=== PATIENT | male | born 1965 | race Caucasian/White ===

== ENCOUNTER 2018-10-30 22:28 | Emergency (ER) | payer MEDICARE, OTHER ==
[~2018-10-30] VITALS: Ht 157.5 cm; Wt 49.9 kg
[2018-10-30 22:44] VITALS: BP 145/92
[2018-10-30] MEDS ORDERED: ACETAMINOP160 MG/5 M ORAL (22:46)
[2018-10-30] MEDS ORDERED: HYDRALAZINE HCL25 M2 GT (22:46)
[2018-10-30] MEDS ORDERED: ISOSOURCE HN1500 ML PO (22:46)
[2018-10-30] MEDS ORDERED: OLANZAPINE5 MG ORAL (22:46)
[2018-10-30] MEDS ORDERED: NORVASC5 MG GT (22:46)
[2018-10-30] MEDS ORDERED: DEPAKOTE500 MG GT (22:46)
[2018-10-30] MEDS ORDERED: CLONAZEPAM0.5 MG GT (22:46)
[2018-10-30] MEDS ORDERED: FLUPHENAZIN5 MG/1 ML GT (22:46)
[2018-10-30] MEDS ORDERED: BENZTROPINE ME0.5 MG GT (22:46)
[2018-10-30] MEDS ORDERED: DULCOLAX10 MG RC (22:46)
[2018-10-30] MEDS ORDERED: IRON325 M1 PO (22:46)
[2018-10-30] MEDS ORDERED: TRAMADOL HCL50 MG GT (22:46)
[2018-10-30] MEDS ORDERED: ACIDOPHILUS1 EAC6 GT (22:46)
[2018-10-30] MEDS ORDERED: MELATONIN3 MG ORAL (22:46)
--- NOTE | 2018-10-30 22:58 | Emergency Room Report ---
History of Present Illness General Chief Complaint: Malfunctioning Gastric Tube Source: Patient, Medical Record, EMS Present Illness HPI Is a 53-year-old male with multiple medical problem. He presents with chief complaint of dislodgment of his G-tube. He was in bed and turned around and fell out. A small Bhat was placed. He has no complaint. No trauma. No bleeding. No other complaint. Allergies: Coded Allergies: No Known Allergies (Unverified , 10/30/18) Patient History Past Medical History: see triage record, old chart reviewed Past Surgical History: other Pertinent Family History: none Social History: Denies: smoking Immunizations: other Reviewed Nursing Documentation: PMH: Agreed; PSxH: Agreed Nursing Documentation-PMH Past Medical History: No History, Except For Hx Cardiac Problems: No - pneumothorax, hypoxia, resp failure Hx Hypertension: Yes Hx COPD: Yes Hx Neurological Problems: Yes - schizophrenia, bipolar, head injury Review of Systems Eye: Denies: eye pain, blurred vision ENT: Denies: ear pain, nose congestion, throat swelling Respiratory: Denies: cough, shortness of breath Cardiovascular: Denies: chest pain, palpitations Gastrointestinal: Denies: abdominal pain, diarrhea, nausea, vomiting Musculoskeletal: Denies: back pain, joint pain Skin: Denies: rash Neurological: Denies: headache, numbness Endocrine: Denies: increased thirst, increased urine Hematologic/Lymphatic: Denies: easy bruising All Other Systems: negative except mentioned in HPI Physical Exam Vital Signs Date Time Temp Pulse Resp B/P (MAP) Pulse Ox O2 Delivery O2 Flow Rate FiO2 10/30/18 22:28 98.1 88 16 145/92 94 Room Air vitals unremarkable Sp02 EP Interpretation: reviewed, normal General Appearance: well appearing, no apparent distress, alert Head: normocephalic, atraumatic Eyes: bilateral eye PERRL, bilateral eye EOMI ENT: hearing grossly normal, normal pharynx Neck: full range of motion, supple, no meningismus Respiratory: chest non-tender, lungs clear, normal breath sounds Cardiovascular #1: regular rate, rhythm, no murmur Gastrointestinal: normal bowel sounds, non tender, no mass, no organomegaly, no bruit, non-distended, other - G-tube site is clean. No drainage. Musculoskeletal: back normal, gait/station normal, normal range of motion Psychiatric: mood/affect normal Skin: warm/dry Procedures Additional Procedure Procedure Narrative Procedure: G-tube placement Indication: G-tube dislodgment Description: Area cleaned with Betadine. I place a 20 Turkish G-tube without any difficulty. Balloon inflated. Patient tolerated procedure without a problem. X-rays done. Medical Decision Making Diagnostic Impression: Primary Impression: Malfunction of gastrostomy tube ER Course Patient here for G-tube replacement. No extravasation. No trauma. Other X-Ray Diagnostic Results Other X-Ray Diagnostic Results : X-Ray ordered: KUB with Gastrografin # of Views/Limited Vs Complete: 1 View Indication: Pain EP Interpretation: Yes Interpretation: no dislocation, no soft tissue swelling, no fractures, nonspecific bowel gas, other - No extravasation Impression: Other - successful placement of Gtube Electronically Signed by: Edgar Wilde MD Last Vital Signs Date Time Temp Pulse Resp B/P (MAP) Pulse Ox O2 Delivery O2 Flow Rate FiO2 10/30/18 22:44 98.1 71 16 145/92 94 Room Air Status: improved Disposition: XFER SNF Condition: Stable Patient Instructions: Gastrostomy Tube Home Guide, Adult Additional Instructions: Follow-up with your doctor in 7 days as needed. Return if worse. Edgar Wilde MD Oct 30, 2018 22:58
[2018-10-30] MEDS ORDERED: Gastrograffin 30ml ORAL ONE (23:00)
[2018-10-30 23:27] VITALS: BP_SYST 112; BP_SYST 145; BP_DIAS 87; BP_DIAS 92
--- NOTE | 2018-10-31 11:19 | Diagnostic Imaging Report ---
Indication: Status post gastrostomy replacement Technique: Supine view of the abdomen after injection of water-soluble contrast into gastrostomy Comparison: none Findings: Contrast opacifies the stomach. No contrast extravasation is demonstrated. There is a single dilated small bowel loop noted. The distal colon is mildly distended as well. Impression: Satisfactory position of gastrostomy tube Other findings as noted
== END 2018-10-30 23:33 ==
LOC: EDBD 22:28 → EMR 22:50
DX: Z43.1 Encounter for attention to gastrostomy (principal); F20.9 Schizophrenia, unspecified; F31.9 Bipolar disorder, unspecified; I10 Essential (primary) hypertension; J44.9 Chronic obstructive pulmonary disease, unspecified
CPT/HCPCS: 43760; 74018; 99284; Q9963

== ENCOUNTER 2018-11-01 00:02 | Emergency (ER) | payer MEDICARE, OTHER ==
[~2018-11-01] VITALS: Ht 172.7 cm; Wt 68.0 kg
[~2018-11-01 00:02] MED LIST: ACETAMINOP160 MG/5 M ORAL; ACIDOPHILUS1 EAC6 GT; BENZTROPINE ME0.5 MG GT; CLONAZEPAM0.5 MG GT; DEPAKOTE500 MG GT; DULCOLAX10 MG RC; FLUPHENAZIN5 MG/1 ML GT; HYDRALAZINE HCL25 M2 GT; IRON325 M1 PO; ISOSOURCE HN1500 ML PO; MELATONIN3 MG ORAL; NORVASC5 MG GT; OLANZAPINE5 MG ORAL; TRAMADOL HCL50 MG GT
[2018-11-01 00:05] VITALS: BP 133/93
--- NOTE | 2018-11-01 00:27 | Emergency Room Report ---
History of Present Illness General Chief Complaint: Malfunctioning Gastric Tube Source: Patient, EMS Present Illness HPI Patient presents with feeding tube that had fallen out It was reported the patient was here yesterday with similar complaint Upon evaluation the feeding tube was replaced by the nursing facility apparently Patient himself denies any vomiting denies any nausea He is not sure how the feeding tube was dislodged denies any pain at the site denies any fevers Allergies: Coded Allergies: No Known Allergies (Unverified , 10/30/18) Patient History Past Medical History: see triage record Pertinent Family History: none Reviewed Nursing Documentation: PMH: Agreed; PSxH: Agreed Nursing Documentation-PMH Hx Cardiac Problems: No - pneumothorax, hypoxia, resp failure Hx Hypertension: Yes Hx COPD: Yes Hx Neurological Problems: Yes - schizophrenia, bipolar, head injury Review of Systems All Other Systems: negative except mentioned in HPI Physical Exam Vital Signs Date Time Temp Pulse Resp B/P (MAP) Pulse Ox O2 Delivery O2 Flow Rate FiO2 11/01/18 00:03 98.2 115 16 133/93 92 Room Air Sp02 EP Interpretation: reviewed, normal General Appearance: well appearing, no apparent distress Head: normocephalic, atraumatic Eyes: bilateral eye PERRL, bilateral eye EOMI ENT: hearing grossly normal, normal pharynx Neck: full range of motion, supple Respiratory: chest non-tender, lungs clear Cardiovascular #1: regular rate, rhythm Gastrointestinal: other - Feeding tube in place Genitourinary: no CVA tenderness Musculoskeletal: other - Moves both upper extremities without focal deficit Neurologic: alert, oriented x3, responsive Skin: normal color, no rash Lymphatic: no adenopathy Medical Decision Making Diagnostic Impression: Primary Impression: feeding tube placement ER Course On evaluation the balloon of the feeding tube has not been inflated, the feeding tube also required to be advanced after advancement the feeding tube was taped down Balloon was inflated with 20 mL KUB Gastrografin has been obtained and patient stable for transfer back to nursing facility Other X-Ray Diagnostic Results Other X-Ray Diagnostic Results : X-Ray ordered: KUB # of Views/Limited Vs Complete: 1 View Indication: Other - feeding tube placement EP Interpretation: Yes Interpretation: no dislocation, no soft tissue swelling, other - Contrast within lumen, no obvious extravasation Impression: No acute disease Electronically Signed by: Ali Jamehdor, DO Last Vital Signs Date Time Temp Pulse Resp B/P (MAP) Pulse Ox O2 Delivery O2 Flow Rate FiO2 11/01/18 00:03 98.2 115 16 133/93 92 Room Air Status: improved Disposition: XFER SNF Condition: Improved Patient Instructions: Gastrostomy Tube Home Guide, Adult Additional Instructions: Patient is provided with the discharge instructions notified to follow up with primary doctor in the next 2-3 days otherwise return to the er with any worsening symptoms. Please note that this report is being documented using [employer] technology. This can lead to erroneous entry secondary to incorrect interpretation by the dictating instrument. Luda Hodgson DO Nov 01, 2018 00:26
[2018-11-01 00:52] VITALS: BP 133/93
--- NOTE | 2018-11-01 10:15 | Diagnostic Imaging Report ---
Indication: Post gastrostomy replacement Technique: Supine view of the abdomen after injection of water-soluble contrast into gastrostomy Comparison: 10/30/2018 Findings: Contrast opacifies the stomach. No contrast extravasation is demonstrated. The bowel gas pattern is unremarkable. Impression: Satisfactory position of gastrostomy tube
== END 2018-11-01 00:45 ==
LOC: EDBD 00:02 → EMR 00:40
DX: K94.23 Gastrostomy malfunction (principal); Y83.3 Surgical operation with formation of external stoma as the cause of abnormal reaction of the patient, or of later complication, without mention of misadventure at the time of the procedure; Y92.9 Unspecified place or not applicable; I10 Essential (primary) hypertension; J44.9 Chronic obstructive pulmonary disease, unspecified
CPT/HCPCS: 74018; 99284